=== PATIENT | female | born 1985 | race Caucasian/White ===

== ENCOUNTER 2018-03-17 08:53 | Day surgery (SDC) | payer MEDICAID ==
--- NOTE | 2018-03-15 14:23 | PREOPHP ---
DATE OF ADMISSION: 03/17/2018 Scheduled for outpatient surgery 03/17/2018. HISTORY OF PRESENT ILLNESS: The patient is a 33-year-old female in overall good health, who recently developed a left breast mass. Imaging studies revealed a 1.5 cm mass, located 3 cm from the nipple at 10 o'clock in the left breast. Core biopsy revealed sclerosing lobular hyperplasia. She is sched uled to undergo excision of this left breast mass. MEDICATIONS: None. ALLERGIES: NONE. PAST SURGICAL HISTORY: Cholecystectomy in 2014. REVIEW OF SYSTEMS: 2, para 2. She is having regular menstrual periods. PHYSICAL EXAMINATION: GENERAL: The patient is 5 foot 4 inches, 122 pounds. HEENT: Within normal limits. LUNGS: Clear. HEART: Regular rhythm. The breasts are small. The left breast, located between the nipple areolar complex and the periphery at 10 o'clock is a 1.5 cm mass. There is no axillary or supraclavicular ly mphadenopathy. ABDOMEN: Soft. Pelvic and rectal per primary care. EXTREMITIES: Without edema. NEUROLOGIC: Physiologic. ASSESSMENT: Sclerosing lobular hyperplasia presenting as a left breast mass. PLAN: Excisional biopsy of left breast mass. I had a full discussion with the patient regarding the nature of her condition and the nature of the surgery, indications, alternatives, options and risks including bleeding, infection, need for additional procedures based on final pathology, recurrence or development of new lesions, scarring and possible distortion of the breast or nipple, etc. All ques tions have been answered. The patient understands and agrees to proceed. Dictated By: HUNG GONSALEZ/EZEKIEL Conf#: [id number] DID#: [id number]
[~2018-03-17] VITALS: Ht 162.6 cm; Wt 55.2 kg
[2018-03-17] VITALS (17 sets, daily range): BP systolic 110–132; BP diastolic 55–67; PULSE 78–94; RESP 11–18; Ht 162.6 cm; Wt 55.2 kg
[~2018-03-17 08:53] MED LIST: CEFAZOLIN 1 GM/50 ML (PMX) 50 ML IVPB SCH; LIDOCAINE 2% (SDV) 5 ML INJ ONE; SEVOFLURANE 15 MIN ONE; SOD CHLORIDE 0.9% 1,000 ML IV SCH
--- NOTE | 2018-03-17 09:45 | HPN ---
Date/Time of Note Date/Time of Note DATE: 03/17/18 TIME: 09:45 Interval H&P Admission Note Pt. seen H&P reviewed: No system changes HUNG MCKINLEY Mar 17, 2018 09:45
--- NOTE | 2018-03-17 10:28 | PREAC ---
Date/Time of Note Date/Time of Note DATE: 03/17/18 TIME: 10:27 Anesthesia Eval and Record Evaluation Time Pre-Procedure Interview DATE: 03/17/18 TIME: 10:27 Age 33 Sex female NPO: 8 hrs Preoperative diagnosis left breast mass Planned procedure excision left breast mass Past Medical History Past Medical History: Includes GI: Other (history of H. pylori) Surgery & Anesthesia Issues No known issue Meds Anticoagulation: No Beta Prabhakar within 24 hr: No Reason Beta Prabhakar not given: Pt. not on B-Prabhakar No Active Prescriptions or Reported Meds Current Medications Sodium Chloride 1,000 ml @ 75 mls/hr [id number] IV ; Start 03/17/18 at 06:00; Stop 03/17/18 at 19:19 Cefazolin Sodium 50 ml @ 100 mls/hr PREOP IVPB ; Start 03/17/18 at 06:00; Stop 03/17/18 at 16:00 Meds reviewed: Yes Allergies Coded Allergies: No Known Allergy (Unverified , 03/17/18) Allergies Reviewed: Yes Labs/Studies Labs Reviewed: Reviewed by anesthesiologist test: Negative Pre-procedure Exam Last vitals Vital Signs Date Temp Pulse Resp B/P (MAP) Pulse Ox O2 O2 Flow FiO2 Time Delivery Rate 03/17/18 96.8 81 16 121/59 100 Room Air 10:11 (79) Airway: Adequate mouth opening, Adequate thyromental dist Mallampati: Mallampati II Teeth: Normal Lung: Normal Heart: Normal ASA Physical Status ASA physical status: 1 Emergency: None Planned Anesthetic General/MAC: LMA Planned Pain Management Parenteral pain med Pre-operative Attestations Prior to commencing anesthesia and surgery, the patient was re-evaluated, there was verification of: *The patient's identity *The results of appropriate recent lab work and preoperative vital signs *The above evaluation not changing prior to induction *Anesthetic plan, risk benefits, alternative and complications discussed with patient/family; questions answered; patient/family understands, accepts and wishes to proceed. Travel Insurance Agent used CRYSTAL VELEZ MD Mar 17, 2018 10:28
[2018-03-17] MEDS ORDERED: HYDROmorphONE 1 MG/5 ML IV SYRINGE IV PRN ×3 (10:30)
[2018-03-17] MEDS ORDERED: OXYCODONE/ACETAMINOPHEN (5/325) TAB PO PRN (10:30)
[2018-03-17] MEDS ORDERED: MEPERIDINE 25 MG INJ IV PRN (10:30)
[2018-03-17] MEDS ORDERED: ONDANSETRON 4 MG INJ IV PRN (10:30)
[2018-03-17] MEDS ORDERED: DIPHENHYDRAMINE 50 MG INJ IV PRN (10:30)
[2018-03-17] MEDS ORDERED: PROCHLORPERAZINE 10 MG INJ IV PRN (10:30)
[2018-03-17] MEDS ORDERED: FENTAnyl 50 MCG/ML VIAL IV PRN ×3 (10:30)
[2018-03-17] MEDS ORDERED: MIDAZOLAM 1 MG/ML 2 ML INJ ONE (10:43)
[2018-03-17] MEDS ORDERED: PROPOFOL 20 ML ONE (10:49)
[2018-03-17] MEDS ORDERED: BUPIVACAINE 0.5% (SDV) 30 ML INJ ONE (10:49)
[2018-03-17] MEDS ORDERED: FENTAnyl 50 MCG/ML VIAL ONE (10:52)
[2018-03-17] MEDS ORDERED: PHENYLephrine (100 MCG/ML) 5ML SYG ONE (10:55)
[2018-03-17] MEDS ORDERED: CEFAZOLIN 1 GM INJ ONE (10:59)
[2018-03-17] MEDS ORDERED: FAMOTIDINE 20 MG INJ ONE (11:00)
[2018-03-17] MEDS ORDERED: DEXAMETHASONE 4 MG/ML 5 ML INJ ONE (11:00)
[2018-03-17] MEDS ORDERED: ONDANSETRON 4 MG INJ ONE (11:00)
--- NOTE | 2018-03-17 11:26 | SIPON ---
Date/Time of Note Date/Time of Note DATE: 03/17/18 TIME: 11:24 Operative Report Preoperative Diagnosis left breast mass sclerosing lobular hyperplasia Postoperative Diagnosis same Operation/Procedure Performed excisional biopsy left breast mass Surgeon see signature line day care assistant none Anesthesia: general Estimated blood loss: minimal Transfusion Required none Specimen left breast mass Grafts/Implants none Complications none HUNG MCKINLEY Mar 17, 2018 11:26
--- NOTE | 2018-03-17 11:31 | NUR ---
RECEIVED PATIENT FROM OR VIA [facility] POST LEFT BREAST MASS EXCISION UNDER GENERAL ANESTHESIA. INCISION TO LEFT BREAST COVERED WITH DRESSING AND METPORE TAPE DRY AND INTACT .STILL SLEEPING ON ARRIVAL ORAL AIR WAY ON ONO2 6L VIA FACE MASK SATURATING 100%.SR BP STABLE.
--- NOTE | 2018-03-17 11:41 | NUR ---
PATIENT NOW AWAKE .DENIES PAIN C/O FEELING COLD .PLACED ON BEAR HUGGER.
--- NOTE | 2018-03-17 11:46 | PAC ---
Date/Time of Note Date/Time of Note DATE: 03/17/18 TIME: 11:45 Post-Anesthesia Notes Post-Anesthesia Note Last documented vital signs Vital Signs Date Temp Pulse Resp B/P (MAP) Pulse Ox O2 O2 Flow FiO2 Time Delivery Rate 03/17/18 98.0 11:38 03/17/18 81 16 121/59 100 Room Air 10:11 (79) Activity: WNL Respiratory function: WNL Cardiovascular function: WNL Mental status: Baseline Pain reasonably controlled: Yes Hydration appropriate: Yes Nausea/Vomiting absent: Yes Comments BP: 124/64 HR: 75 RR: 15 T: 98 Sao2: 100% CRYSTAL VELEZ MD Mar 17, 2018 11:46
--- NOTE | 2018-03-17 11:52 | NUR ---
C/O PAIN 05/25 .DILAUDID0.4MG IV GIVEN .EDUCATED ABOUT PAIN SCALE AND PAIN GOAL.
--- NOTE | 2018-03-17 12:10 | OPR ---
DATE OF OPERATION: 03/17/2018 SURGEON: Hung Israel MD EGG SMELLER: None. ANESTHESIOLOGIST: Dr. Rodriguez. ANESTHESIA: General. PREOPERATIVE DIAGNOSIS: Left breast mass. POSTOPERATIVE DIAGNOSIS: Left breast mass. OPERATION PERFORMED: Excisional biopsy of left breast mass. INDICATIONS AND FINDINGS: The patient had a small approximately 1.5 cm nodule at 10 o'clock of the l eft breast between the nipple areolar complex and the periphery with core biopsy revealing sclerosing lobular hyperplasia. DESCRIPTION OF PROCEDURE: The patient was taken to the operating room and under general anesthesia, with sequential compression device stockings in place, she was prepped and draped in the usual fashio n. A transverse curvilinear incision was made overlying the palpable nodule. The lesion was excised with some surrounding breast tissue using the cautery for hemostasis. After removing the tissue, I could feel the nodular mass and palpation within the breast that failed to reveal any additional nodu larity or nodules or masses. Marcaine 0.5% plain was used for local infiltration. The wound was irr igated and hemostasis was secure. The incision was closed with interrupted inverted 3-0 Vicryl, foll owed by continuous 4-0 Monocryl subcuticular suture. Mastisol and 1/2-inch Steri-Strips were applied , followed by dry sterile dressing. Final sponge and needle counts were correct. The patient tolera brent the procedure well and left the operating room in good condition. Dictated By: HUNG GONSALEZ/EZEKIEL Conf#: [id number] DID#: [id number]
--- NOTE | 2018-03-17 12:12 | NUR ---
RESTING COMFORTABLY PAIN DOWN TO GOAL LEVEL 2/10.
--- NOTE | 2018-03-17 12:45 | NUR ---
TRANSFERRED TO [facility] IN STABLE CONDITION .DRESSING TO LEFT BREAST DRY ANS INTACT .NO SIGNS OF BLEEDING SO FAR .PAIN CONTROLLED TO PATIENTS GOAL LEVEL 2.10, REPORT GIVEN TO GEE BANDA .FAMILY INFORMED.
--- NOTE | 2018-03-17 16:45 | NUR ---
NO BLEEDING NOTED, TOLERATING PO FLUIDS, SEND HOME IN STABLE CONDITION WITH INSTRUCTIONS.
== END 2018-03-17 14:00 | disposition home or self-care (01) ==
LOC: SDS 08:53
PROVIDERS: ATTEND Surgery
DX: N60.22 Fibroadenosis of left breast (principal)
CPT/HCPCS: 19101; 84703; 88307; J0690; J1100; J1170; J2250; J2370; J2405; J3010; Z7512; Z7610